=== PATIENT | male | born 1970 | race Caucasian/White ===

== ENCOUNTER → 2018-09-24 | Outpatient (CLI) | payer BC ==
[2018-09-24 12:31] LABS: Basophils # (A) 0.1 k/uL (0-0.2); Basophils % (A) 1 %; Eosinophils # (A) 0.2 k/uL (0-0.7); Eosinophils % (A) 2 %; HGB 15.5 gm/dL (13.0-17.5); Lymphocytes # (A) 2.1 k/uL (1.0-4.8); Lymphocytes % (A) 24 %; MCH 30.5 pg (25.0-35.0); MCHC 33.7 g/dL (31.0-37.0); MCV 90.5 fL (80.0-100.0); Mean Platelet Volume 7.3; Monocytes # (A) 0.5 k/uL (0-1.0); Monocytes % (A) 6 %; Neutrophils # (A) 5.4 k/uL (1.3-7.7); Neutrophils % (A) 64 %; Platelet Count 251 k/uL (150-450); RBC 5.08 m/uL (4.30-5.90); WBC 8.4 k/uL (3.8-10.6)
[2018-09-24 12:43] LABS: Blood Urea Nitrogen 18 mg/dL (9-20)
--- NOTE | 2018-09-24 13:52 | CT ---
EXAMINATION TYPE: CT abdomen pelvis w con DATE OF EXAM: 09/24/2018 COMPARISON: None HISTORY: Right lower quadrant pain. CT DLP: 1843 mGycm, Automated Exposure Control for Dose Reduction was Utilized. CONTRAST: CT scan of the abdomen and pelvis is performed with oral and with IV Contrast, patient injected with 100 mL of Isovue 300. FINDINGS: LUNG BASES: Dependent atelectasis right lung base is present . LIVER/GB: No significant abnormality is appreciated. PANCREAS: No significant abnormality is seen. SPLEEN: No significant abnormality is seen. ADRENALS: No significant abnormality is seen. KIDNEYS: No significant abnormality is seen. BOWEL: The oral contrast does not reach level of terminal ileum. Appendix appears within normal limit s inferiorly from base of cecum. There is no suspicious small or large bowel dilatation. PROSTATE/SEMINAL VESICLES: Heterogeneous prostate gland is upper limits of normal in size. LYMPH NODES: No greater than 1cm abdominal or pelvic lymph nodes are appreciated. OSSEOUS STRUCTURES: There are bilateral laminectomy defects and spinous process resection L5 level. P osterior fusion hardware L5-S1 level is seen. There is moderate to advanced disc space narrowing L5-S 1 level. There is slight grade 1 anterolisthesis of L5 on S1. OTHER: There is small umbilical hernia containing fat and tiny mesenteric vessels coronal image 11 an d axial image 58. IMPRESSION: No CT evidence for acute appendicitis. No significant acute finding is seen to account f or patient's clinical symptoms of right lower quadrant pain.
== END | disposition home or self-care (01) ==
LOC: RADCTMAIN 11:54
PROVIDERS: ATTEND Physician Assistant
DX: R10.31 Right lower quadrant pain (principal)
CPT/HCPCS: 82565; 84520; 85025; 74177; Q9967

== ENCOUNTER 2019-05-13 06:54 | Day surgery (SDC) | payer BC ==
[2019-05-09 10:04] VITALS: BMI 27.8
[~2019-05-13 06:54] MED LIST: LACTATED RINGERS 1,000 ML IV SCH; LIDOCAINE 1% 20 ML VIAL (10MG/ML) FOR IV START INTRADERMA PRN
[2019-05-13 07:12] VITALS: TEMP 97.3
[2019-05-13] MEDS ORDERED: PROPOFOL 10 MG/ML 20 ML VIAL IV ONE (07:29)
--- NOTE | 2019-05-13 08:09 | P.PCN ---
Date of Procedure: 05/13/19 Description of Procedure: BRIEF HISTORY: 49-year-old male scheduled for elective colonoscopy as part of screening for malignant neoplasm of the colon. No prior colonoscopy reported. Denies any blood per rectum, pain in abdomen, diarrhea or constipation. No family history of colon cancer. PROCEDURE PERFORMED: Colonoscopy. PREOPERATIVE DIAGNOSIS: Screening for malignant neoplasm of the colon. ESTIMATED BLOOD LOSS: Minimal. IV sedation per Anesthesia. PROCEDURE: After informed consent was obtained, the patient, was brought into the endoscopy unit. IV sedation was administered by Anesthesia under continuous monitoring. Digital rectal examination was normal. Initially the Olympus CF-190 flexible video colonoscope was then inserted in the rectum, gradually advanced into the cecum without any difficulty. Careful examination was performed as the scope was gradually being withdrawn. Ileocecal valve and the appendiceal orifice were visualized and appeared normal. Prep was excellent. Mucosa of the cecum, ascending colon, transverse colon, descending colon, sigmoid colon, and rectum appeared normal. Mild scattered large and small mouth diverticula noted in the left colon consistent with mild diverticulosis. Retroflexion was performed in the rectum and no lesions were seen, mild internal hemorrhoids noted. The patient tolerated the procedure well. IMPRESSION: Normal-appearing colon from rectum to cecum. Mild left-sided diverticulosis. Mild internal hemorrhoids. RECOMMENDATIONS: Findings of this examination were discussed with the patient and his . Recommend high-fiber diet. Repeat colonoscopy in 10 years or sooner if signs or symptoms develop.
[2019-05-13 08:24] VITALS: BP 140/93; PULSE 62; RESP 18
== END 2019-05-13 08:55 | disposition home or self-care (01) ==
LOC: ORWHC2ENDO 06:54
PROVIDERS: ATTEND Internal Medicine
DX: Z12.11 Encounter for screening for malignant neoplasm of colon (principal); K57.30 Diverticulosis of large intestine without perforation or abscess without bleeding; K64.8 Other hemorrhoids; E78.5 Hyperlipidemia, unspecified; Z79.899 Other long term (current) drug therapy; K21.9 Gastro-esophageal reflux disease without esophagitis
CPT/HCPCS: G0121; J2704; 45378

== ENCOUNTER 2020-07-02 08:59 | Day surgery (SDC) | payer BC, OTHER ==
[2020-06-30 18:08] VITALS: BMI 27.1
[~2020-07-02 08:59] MED LIST changes: -LIDOCAINE 1% 20 ML VIAL (10MG/ML) FOR IV START INTRADERMA PRN
[2020-07-02 09:19] VITALS: RESP 16; TEMP 98.2
[2020-07-02] MEDS ORDERED: MIDAZOLAM 2 MG/2 ML VIAL ONE (09:37)
[2020-07-02] MEDS ORDERED: IOPAMIDOL M200 10 ML VIAL ONE (09:37)
[2020-07-02] MEDS ORDERED: ROPIVACAINE 5MG/ML 20ML VIAL ONE (09:37)
[2020-07-02] MEDS ORDERED: DEXAMETHASONE SOD PHOSPHATE 10 MG/ML 1 ML VIAL ONE (09:37)
[2020-07-02] MEDS ORDERED: fentaNYL (PF) 50 MCG/ML 2 ML AMP ONE (09:37)
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
--- NOTE | 2020-07-02 10:01 | P.PCN ---
Date of Procedure: 07/02/20 Surgeon: Hannah Lucero Pathology: none sent Condition: stable Disposition: PACU Description of Procedure: PREOPERATIVE DIAGNOSIS: Lumbar radiculopathy /postlaminectomy pain syndrome POSTOPERATIVE DIAGNOSIS: Lumbar radiculopathy/postlaminectomy pain syndrome PROCEDURE 1. Transforaminal epidural steroid injection under fluoroscopic guidance at L4-5 left side 2. Lumbar epidurogram. SURGEON: Hannah Lucero MD DIRECTOR OF MIDWIFERY/STAFF MIDWIFE: ANESTHESIA: Local with 1% lidocaine; IV sedation with Versed and fentanyl. EBL: Minimal PROCEDURE INDICATION: The patient with low back pain and radiculopathy symptoms unresponsive to conservative treatment. PROCEDURE DESCRIPTION / TECHNIQUE: The patient was seen and identified in the preoperative area. Risks, benefits, complications, and alternatives were discussed with the patient. The patient agreed to proceed with the procedure and signed the consent. IV was started, and vital signs were stable. Patient was taken to the OR and time out was completed. The patient was placed in the prone position on procedure table and a pillow was placed under the abdomen to reduce lumbar lordosis. The lumbosacral area was prepped and draped in the usual sterile fashion. Critical pause was taken. Vital signs were closely monitored during the procedure. Conscious sedation was used during the procedure to decrease patients anxiety. The vertebral body of the lumbar vertebra L4 was squared off by tilting the C-arm cephalad then the C-arm was tilted to the oblique position and the target point was at the 6 o'clock position of the pedicle of then skin and deeper tissues were localized with 1% lidocaine. Subsequently, a 22-gauge 3.5- inch spinal needle was advanced under a tunneled view fluoroscopic guidance just underneath the chin of the Jamel dog at the L4-5 foramen. Under lateral fluoroscopy, the needle was then advanced to the middle of the upper one third of the foramen between(L4,L5 ). After negative aspiration of CSF and blood and with no paresthesias, 1 mL of omnipaque contrast dye was injected excellent epidurogram and outlining of the L nerve root was identified. Subsequently, 2 mL of block solution containing 10 mg of Decadron and 1 mL of Lidocaine 1% PF was injected. Needle was removed and the same . At the end of the procedure, skin was cleansed, and bandages were applied. COMPLICATIONS: None COMMENTS: DISPOSITION / PLANS: The patient was placed in a supine position and transferred to the recovery area in a stable condition for observation. There was no evidence of lower extremity motor or sensory deficit after the procedure. Patient was discharged from the recovery room after meeting discharge criteria. Home discharge instructions were given to the patient by the staff.
[2020-07-02 10:25] VITALS: BP 119/76; PULSE 64
--- NOTE | 2020-07-02 15:22 | FL ---
EXAMINATION TYPE: FL guided pain mgmt statistic DATE OF EXAM: 07/02/2020 COMPARISON: None HISTORY: Left transforaminal injection TECHNIQUE: Fluoroscopy. FINDINGS: Fluoroscopic guidance was provided during procedure performed by Dr. Lucero. A total of 17 seconds of fluoroscopic time was utilized during the procedure and 2 spot images was acquired. IMPRESSION: As Above.
== END 2020-07-02 10:42 | disposition home or self-care (01) ==
LOC: ORPAIN 08:59
PROVIDERS: ATTEND Anesthesiology
DX: M54.16 Radiculopathy, lumbar region (principal); M96.1 Postlaminectomy syndrome, not elsewhere classified; I10 Essential (primary) hypertension; E78.5 Hyperlipidemia, unspecified; N42.9 Disorder of prostate, unspecified
CPT/HCPCS: 64483; J2250; J1100; J3010; Q9966; J2795; 99152

== ENCOUNTER 2020-07-16 07:25 | Day surgery (SDC) | payer BC ==
[2020-07-14 15:00] VITALS: BMI 27.1
[2020-07-16] MEDS ORDERED: LACTATED RINGERS 1,000 ML IV SCH (07:32)
[2020-07-16 07:36] VITALS: TEMP 97.4
[2020-07-16] MEDS ORDERED: MIDAZOLAM 2 MG/2 ML VIAL ONE (08:12)
[2020-07-16] MEDS ORDERED: IOPAMIDOL M200 10 ML VIAL ONE (08:12)
[2020-07-16] MEDS ORDERED: DEXAMETHASONE SOD PHOSPHATE 10 MG/ML 1 ML VIAL ONE (08:12)
--- NOTE | 2020-07-16 08:24 | P.PCN ---
Date of Procedure: 07/16/20 Description of Procedure: PREOPERATIVE DIAGNOSIS: Lumbar radiculopathy POSTOPERATIVE DIAGNOSIS: Lumbar radiculopathy PROCEDURE 1. Transforaminal epidural steroid injection under fluoroscopic guidance at the left L4 5 2. Lumbar epidurogram IMAGING Fluoroscopy was used, images where saved to the medical record ANESTHESIA: Local with 1% lidocaine 5 ml ; 2 mg of Versed PROCEDURE DESCRIPTION / TECHNIQUE: The patient was seen and identified in the preoperative area. Risks, benefits, complications, and alternatives were discussed with the patient. The patient agreed to proceed with the procedure and signed the consent, vital signs were stable prior to the procedure. Patient was taken to the OR and time out was completed. The patient was placed in the prone position on procedure table and a pillow was placed under the abdomen to reduce lumbar lordosis. The lumbosacral area was prepped and draped in the usual sterile fashion. Vital signs were closely monitored during the procedure. Conscious sedation was used. Using oblique fluoroscopy, the chin of the "Jamel dog" at the pedicle and the skin and deeper tissues just below was localized with 1% lidocaine. Sub sequently, a 25-gauge 3.5-inch spinal needle was advanced under a tunneled view fluoroscopic guidance just underneath the chin of the "Jamel dog". Under lateral fluoroscopy, the needle was then advanced to the posterior border interforaminal space. After negative aspiration of CSF and blood and with no paresthesias, 1 mL of Omnipaque-240 contrast dye was injected excellent epidurogram. Subsequently, a solution totalling 2ml of dexamethasone and PFNS was injected after negative aspiration (total of 10mg of dexamethasone was used). The needle was removed intact. COMPLICATIONS: None DISPOSITION: The patient was placed in a supine position and transferred to the recovery area in a stable condition for observation. There was no evidence of l ower extremity motor or sensory deficit after the procedure. Patient was discharged from the recovery room after meeting discharge criteria. Home discharge instructions were given to the patient by the staff. The patient was reexamined prior to discharge. Follow up as directed.
[2020-07-16] MEDS ORDERED: IV FLUID CONTINUATION 1,000 ML IV ONE (08:32)
[2020-07-16 08:34] VITALS: RESP 18
[2020-07-16 08:50] VITALS: BP 141/92; PULSE 62
--- NOTE | 2020-07-16 10:55 | FL ---
Fluoroscopy HISTORY: Pain 8 seconds fluoroscopy time supplied to the referring clinician. 1 intraoperative C-arm images docume nt the procedure. See dictated report from anesthesia.
== END 2020-07-16 09:04 | disposition home or self-care (01) ==
LOC: ORPAIN 07:25
PROVIDERS: ATTEND Hospitalist
DX: M54.16 Radiculopathy, lumbar region (principal)
CPT/HCPCS: 64483; J2250; J1100; Q9966

== ENCOUNTER → 2020-09-09 | Outpatient (CLI) | payer BC ==
--- NOTE | 2020-09-09 09:35 | MR ---
EXAMINATION TYPE: MR lumbar spine wo con DATE OF EXAM: 09/09/2020 COMPARISON: None HISTORY: 50-year-old male Radiculopathy, pain TECHNIQUE: Multiplanar, multisequence images of the lumbar spine were acquired. FINDINGS: Vertebral body heights are preserved. Some mixed Modic type I and type II endplate changes present towards the right at L2-L3. No suspiciou s bone marrow replacement. Conus medullaris is normal. Prior L5-S1 posterior fusion with a fixed grade 1 anterolisthesis. There is moderate degenerative disc disease above the fusion at L4-L5 desiccated, mildly narrowed, an d bulging disc. Corresponding facet arthropathy and ligamentum flavum thickening and grade 1 retrolis thesis. Remaining alignment is maintained. Additional mild degenerative disc disease scattered throughout, more moderate at L2-L3. No large focal disc herniation or significant spinal canal stenosis. At T12-L1, no canal or foraminal stenosis. At L1-L2, minimal bulging disc without canal or foraminal stenosis. At L2-L3, mild diffuse disc bulge impressing on the ventral thecal sac. No significant canal or kacey inal stenosis. At L3-L4, mild disc bulge with facet arthropathy. No significant canal or foraminal stenosis. At L4-L5, hypertrophic facet arthropathy with grade 1 retrolisthesis and diffuse disc bulge. Changes result in moderate bilateral neuroforaminal stenosis, left greater than right. No spinal canal stenos is. At L5-S1, diffuse level, there is dorsal decompression of the spinal canal with laminectomy change. S ome residual hyperostotic changes of the facet joints. There is slitlike narrowing of the left neurof oramen with at least a moderate neuroforaminal stenosis. Mild to moderate on the right. No prevertebral or paravertebral soft tissue abnormality. IMPRESSION: 1. Status post L5-S1 posterior lumbar fusion with laminectomy change. Fixed grade 1 anterolisthesis a t this level. There is slitlike narrowing of the left neuroforamen with at least a moderate neurofora blayne stenosis here, [id number] on the right. 2. Moderate degenerative disc disease and hypertrophic facet arthropathy above the fusion at L4-L5 wi th grade 1 retrolisthesis. While there is no significant spinal canal stenosis, there is moderate estevan roforaminal stenosis, left greater right. 3. Additional moderate degenerative disc disease L2-L3 without significant canal or foraminal stenosi s. Mixed Modic type I and type II endplate change at this level towards the right.
== END | disposition home or self-care (01) ==
LOC: RADMRIMAIN 07:25
PROVIDERS: ATTEND Family Medicine
DX: M48.061 Spinal stenosis, lumbar region without neurogenic claudication (principal); M43.16 Spondylolisthesis, lumbar region; M51.16 Intervertebral disc disorders with radiculopathy, lumbar region; M47.896 Other spondylosis, lumbar region; Z98.1 Arthrodesis status; Z98.890 Other specified postprocedural states
CPT/HCPCS: 72148

== ENCOUNTER → 2024-11-25 | Outpatient (CLI) | payer MEDICARE ==
--- NOTE | 2024-11-25 11:59 | CA ---
Exercise Stress Test Report Name: Fransisco Villeda Exam Date: 11/25/2024 09:09 Exam Location: [place] Stress Ht (in): 71 Wt (lb): 205 BSA: 2.13 Ordering Phys: Ambrocio Rivera MD Referring Phys: Dasha Blanco [facility] Technologist: CINDY COLEMAN Age: 54 Gender: M : 1970 Procedure CPT: Indications: R42 dizziness and giddiness ICD-10 Codes: Patient History: Medications: Meds past 24 hrs: Pretest Chest Pain: STRESS TEST Gonzalez Protocol Exercise Duration (min:sec): 12:[address] Depressions (mm): Angina Score: Sloan Score: Resting HR (bpm): 75 Peak HR (bpm): 146 Resting BP (mmHg): 143 / 92 Peak BP (mmHg): 239 / 79 MPHR: 164 Target HR: 139 % MPHR: 89 METS: 12.1 Total Dose: Peak Dose: Atropine: Double Product: 28484 BP Response: Stress Termination: Reached target heart rate Stress Symptoms: NO SYMPTOMS Stress Summary: ECG ANALYSIS Resting ECG: Stress ECG: CONCLUSIONS Patient underwent exercise stress EKG with a Gonzalez protocol treadmill stress test. Patient exercised into Stage 4 for a total of 12 minutes reaching a total of 12.1 METS. Patient's maximum heart rate was 146 which represented 89% age-predicted maximum heart rate. Stress EKG findings: At baseline patient's EKG showed normal sinus rhythm, normal axis, no significant ST-T wave abnormalities. At peak exercise, EKG showed no significant change from baseline. Conclusions: 1. Normal EKG response to exercise without evidence of inducible ischemia. 2. Excellent exercise capacity. Dr. Hayden Ann DO (Electronically Signed) Final Date: 25 November 2024 11:58
== END | disposition home or self-care (01) ==
LOC: RADNMMAIN 08:20
PROVIDERS: ATTEND Family Medicine
DX: R42 Dizziness and giddiness (principal)
CPT/HCPCS: 93017